=== PATIENT | female | born 1955 | race Caucasian/White ===

== ENCOUNTER 2016-08-07 10:05 | Observation (INO) | payer BC ==
[2016-08-01 20:58] LABS: HEMATOCRIT 37.1 % (36.0-48.0); HEMOGLOBIN 11.6 g/dL (12.0-16.0)
[2016-08-01 21:13] LABS: BUN (BLOOD UREA NITROGEN) 13 MG/DL (6-23); CALCIUM, SERUM 9.8 MG/DL (8.5-10.4); CHLORIDE, SERUM 99 MMOL/L (96-112); CO2 (CARBON DIOXIDE) 31 MMOL/L (24-34); CREATININE 0.97 MG/DL (0.55-1.02); GFR AFRICAN AMERICAN 73 ML/MIN (>=60); GFR NON AFRICAN AMERICAN 63 ML/MIN (>=60); GLUCOSE, SERUM 86 MG/DL (60-99); POTASSIUM, SERUM 3.5 MMOL/L (3.5-5.3); SODIUM, SERUM 138 MMOL/L (135-148)
--- NOTE | ~2016-08-07 | CN ---
Consultation Report [facility] [address] [place]. [address] NAME: KADEN MA : 51 STATUS : ADM Natalee PAT#: [id number] AGE: 60 ADM/REG DATE : 08/07/16 MR#: [id number] REPORT SERV DATE: 08/08/16 DICTATED BY: JASERADHAJINA JC DATE: 08/07/16 REPORT STATUS : Draft TRANSCRIBED BY: MODL DATE: 08/07/16 CONSULTATION DATE OF CONSULTATION: 08/07/2016 REASON FOR CONSULTATION: Consulted for hypertension and diabetes management. IDENTIFYING DATA: 1. PCP Yan Grijalva M.D. 2. Past surgeon Yan Rose M.D. 3. Orthopedist, Tramaine Price DO. 4. Category Development Analyst at [employer] M.D. 5. She sees the [facility] for followup on a thyroid nodule. HISTORY OF PRESENT ILLNESS: This is a pleasant 60-year-old, female, with presentation to Dr. Tramaine Price for intractable neck pain as well as paresthesias in her lower extremities. She is reporting that she has had progression of paresthesia and worsening of problems with her balance, falls, and dropping objects within the last 6 months. She was noted to have cervical disc disease and stenosis as well as progressive myelopathy most severe in C3-C6. She is presently status post C3-C6 anterior cervical diskectomy and fusion with interbody cage per Dr. Tramaine Price on 08/07/2016. The patient has a history of hypertension, TIA in the past as well as a history in 2014 of CHF and some problems with irregular rhythm noted as atrial fibrillation. She also is diabetic which she has diabetes type 2. Her last known A1c is 6.2 in April 2016 for which she states her PCP Yan Grijalva manages her care. The hospitalist group has been consulted to help manage the patient's blood sugars postoperatively as well as her blood pressure. Presently, her blood pressure is 130/80, with respiratory rate at 14, heart rate 72, and O2 saturation 99%. Her present blood sugar noted was 104. The patient's history was obtained through careful interview with the patient as well as review of [employer], [employer], and additional medical and [employer] ax consultant records. PAST MEDICAL HISTORY: 1. Anemia. 2. Fibromyalgia. 3. Osteoarthritis. 4. Raynaud disease. 5. Hypertension. 6. She wears glasses. 7. Diabetes type 2. 8. Hypercholesterolemia. 9. Hypothyroidism. 10.Atrial fibrillation. Consultation Report [facility] [address] [place]. [address] NAME: KADEN MA : 51 STATUS : ADM Natalee PAT#: [id number] AGE: 60 ADM/REG DATE : 08/07/16 MR#: [id number] REPORT SERV DATE: 08/08/16 DICTATED BY: RADHA LAGUNA DATE: 08/07/16 REPORT STATUS : Draft TRANSCRIBED BY: NADYA DATE: 08/07/16 11.Chronic fatigue syndrome. 12.Murmur. 13.Recurrent UTIs. 14.Peripheral neuropathy. 15.GERD. 16.Asthma. 17.Palpitations. 18.IBS. 19.Cholecystitis. 20.TIA that affected her right eye in the year 1999 and her vision. She states now her vision is normalized. 21.CHF. Last echo and stress test done in 2014. 22.Anxiety. HOME MEDICATION: 1. Docusate sodium 200 mg p.o. at bedtime. 2. Zetia 20 mg p.o. at bedtime. 3. Lasix 40 mg p.o. daily. 4. Metformin 1000 mg p.o. with breakfast and supper. 5. Toprol-XL 50 mg p.o. at bedtime. 6. Prilosec 20 mg p.o. every morning. 7. Aldactone 25 to 50 mg p.o. twice a day, 50 mg is taken in the a.m. and 25 mg is taken at bedtime. 8. Corona Thyroid 15 mg p.o. at bedtime. 9. Xanax 0.5 mg p.o. at bedtime. 10.Aspirin 81 mg p.o. at bedtime. 11.Lipitor 80 mg p.o. at bedtime. 12.Symbicort 160/4.5 mcg inhaler two puffs inhalation twice a day p.r.n. 13.Flexeril 10 mg p.o. at bedtime. ALLERGIES: THE PATIENT HAS NUMEROUS ALLERGIES. 1. CEFTIN. 2. CODEINE. 3. CYMBALTA. 4. PENICILLIN DRUGS. 5. TRAMADOL. 6. CHLORINE AND CLEANING FLUIDS. 7. TYLENOL. 8. IBUPROFEN. 9. LATEX. 10.MORPHINE. 11.HYDROCODONE. 12.OXYCODONE. 13.AVOCADO. 14.BANANA. Consultation Report [facility] [id number] [place]. [address] NAME: KADEN MA : 51 STATUS : ADM Natalee PAT#: [id number] AGE: 60 ADM/REG DATE : 08/07/16 MR#: [id number] REPORT SERV DATE: 08/08/16 DICTATED BY: RADHA LAGUNA DATE: 08/07/16 REPORT STATUS : Draft TRANSCRIBED BY: MODL DATE: 08/07/16 SOCIAL HISTORY: The patient is 25 years. Has 1 child. No alcohol, tobacco, or illicit drug use. She has a single level home. She states prior to surgery she has had to use a cane to ambulate. FAMILY HISTORY: 1. Positive for premature coronary artery disease. 2. Father was from an [place] in his 50s. 3. Brother had an [place] at age 3939 years old. 4. Mother and sister have a history of dysrhythmias and atrial fibrillation. SURGICAL HISTORY: 1. Carpal tunnel release 2007. 2. Right ankle surgery 2010. 3. Right foot surgery for Avalos's neuroma in 2003. 4. Laparoscopy in the . 5. Multiple surgeries for adhesions. 6. A lap with BSO with appendectomy in 1997. 7. Hysterectomy in 1994. 8. Lumbar spine back surgery October 2010. 9. Knee surgery multiple x2 on the right in 2005 and three on the left in 2002. 10.Laparoscopic cholecystectomy 04/30/2012. 11. in 1982. 12.Left thumb tendon reattachment in 1987. 13.Tonsillectomy in 1969. 14.Needle that was removed from her finger in 2013. REVIEW OF SYSTEMS: Review of systems negative other than what is included in HPI. Presently, the patient is alert and oriented x3. She is sleepy. She has a TAX MANAGER CPA with Dilaudid for pain control. She has no shortness of breath. No abdominal pain. She does have some nausea and vomiting which she states she has usually postoperatively after using anesthesia. No chest pain. No fever. Displays no confusion or agitation. PHYSICAL EXAMINATION: VITAL SIGNS: From today initially blood pressure 118/75, now 130/80, respiratory rate 14, heart rate 72, O2 saturation 99% on 2 L nasal cannula. GENERAL: This is a very pleasant, 60-year-old female, resting in bed. She has family at bedside. She is having nausea and vomiting presently. NEURO: Her head is atraumatic. She is normocephalic. She is alert and oriented x3. Cranial nerves are intact. Mood is pleasant and appropriate. NECK: Supple. Trachea is midline. No JVD noted. She does have followup for a thyroid nodule for which she is treated for hypothyroidism. She has a cervical collar in place presently. EENT: Sclerae are nonicteric. Pupils are equal and reactive to light. Nares are patent. Consultation Report [facility] [id number] [place]. [address] NAME: KADEN MA : 51 STATUS : ADM Natalee PAT#: [id number] AGE: 60 ADM/REG DATE : 08/07/16 MR#: [id number] REPORT SERV DATE: 08/08/16 DICTATED BY: RADHA LAGUNA DATE: 08/07/16 REPORT STATUS : Draft TRANSCRIBED BY: NADYA DATE: 08/07/16 Mucous membranes moist. Tongue midline without deviation. Soft palate rises with phonation. CHEST: No pain with palpation to chest. LUNGS: Clear to auscultation bilaterally. She has normal respiratory effort. No increased work of breathing. She is on O2 at 2 L. She does have a history of asthma. CARDIOVASCULAR: S1, S2. She is presently on defensive telemetry monitoring. She displays a sinus rhythm with a rate of 72. ABDOMEN: Soft, nontender. She has hypoactive bowel sounds. No palpable organomegaly. She is taking a few sips of clear liquids but she is having a lot of nausea. EXTREMITIES: Normal distal pulses. No calf tenderness. No edema. She has bilateral TEDs and SCDs in place for DVT prophylaxis. SKIN: Warm and dry. No unusual rashes or lesions. Normal color and turgor. PSYCH: The patient is cooperative, appropriate mood and affect. States she just feels really bad right now from the nausea. SURGICAL WOUND SITE: Dressing is clean, dry, and intact. She does have a RAND drain compressed with serosanguineous drainage to her cervical op site. She has a cervical collar intact. LABORATORY DATA: Sodium 138, potassium 3.5, chloride 99, BUN 13, creatinine 0.97, GFR 73. Glucose 86, calcium 9.8, hemoglobin 11.6, hematocrit 37.1, and that was from her labs obtained preoperatively on 08/01/2016. Blood sugars 86 and presently 104. On 08/01/2016, she had an ECG that showed normal sinus rhythm with a rate of 70 and a normal ECG. She previously had an echo on 02/23/2013 that showed no evidence of myocardial ischemia and was a low risk stress test. She also had testing again in 2014. In 2013, she had a normal left ventricular size and systolic function with EF around 65% with a trace of mitral regurg and mild tricuspid regurg. ASSESSMENT AND PLAN: 1. Diabetes type 2. The patient does not follow any regular diet at home for her diabetes nor does she monitor her diabetes. She has no meter. Her A1c in April 2016 was 6.2. We will place her on a 1500 calorie ADA, in the morning when she is nauseated. For now, she will be on clear liquids. We will have a extension educator discuss diet and monitoring and possibly obtain a meter for her. Fingerstick blood sugars for tonight will be q.6 hours and then in the morning when she is able to eat, we will resume a.c. and h.s. with a sliding scale insulin level 1 and hypoglycemic protocol. Presently, her metformin is held, and we will check a hemoglobin A1c in the morning. 2. Gastroesophageal reflex disease. Aware. The patient is continued on her Prilosec. 3. Hypertension. She has had a history of CHF a few years ago as well as TIA and atrial fibrillation. Aware. We will continue her metoprolol. Her aspirin is on hold postoperatively, and we will decrease her IV fluids to 75 enough to hydrate her but not to overload her. We will add p.r.n. hydralazine if her blood pressure is greater than 165 systolically. Presently, her Lasix and Aldactone are on hold until a.m. labs and patient is hydrated. 4. Hypothyroidism. Aware. We will continue her thyroid medication. We will check a TSH and a free-T4 in the morning. Consultation Report [facility] [address] [place]. [address] NAME: KADEN MA : 51 STATUS : ADM Natalee PAT#: [id number] AGE: 60 ADM/REG DATE : 08/07/16 MR#: [id number] REPORT SERV DATE: 08/08/16 DICTATED BY: RADHA LAGUNA DATE: 08/07/16 REPORT STATUS : Draft TRANSCRIBED BY: NADYA DATE: 08/07/16 5. Hypercholesterolemia. Aware. Her Zetia and Lipitor are continued. 6. Asthma. Aware. We will have O2 to keep her sats 92% or greater. She does utilize Symbicort at home but will be continued. We will add p.r.n. albuterol nebs as needed for shortness of breath and wheezing. She will need to be on continuous O2 sats while on TAX MANAGER CPA Dilaudid for pain control. 7. Anxiety. Aware. She will have her Xanax continued at bedtime for her anxiety. 8. Labs in the a.m.; CMP, magnesium, phosphorus, CBC, BNP, TSH, free T4, hemoglobin A1c, and portable chest x-ray. The hospitalist group would like to thank you for this consultation. Let us know if we can be of further assistance. AXEL Radha Laguna NP / [id number] CC: Tramaine Price, DO Yan Grijalva M.D.
--- NOTE | ~2016-08-07 | OP ---
Record Of Operation [facility] [address] [place]. [address] NAME: KADEN MA : 51 STATUS : ADM Natalee PAT#: [id number] AGE: 60 ADM/REG DATE : 08/07/16 MR#: [id number] REPORT SERV DATE: 08/07/16 DICTATED BY: TRAMAINE MCNAIR DATE: 08/07/16 REPORT STATUS : Draft TRANSCRIBED BY: MODL DATE: 08/07/16 DATE OF PROCEDURE: 08/07/2016 PREOPERATIVE DIAGNOSES: Cervical spondylotic myelopathy; C4-5, C5-6 disk disease with severe stenosis and spinal cord compression; and C3-C4 disk disease. POSTOPERATIVE DIAGNOSES: Cervical spondylotic myelopathy; C4-5, C5-6 disk disease with severe stenosis and spinal cord compression; and C3-C4 disk disease. PROCEDURE: Anterior cervical diskectomy and fusion, C4-5 and C5-6; placement of Medtronic PEEK interbody spacer, C4-5, C5-6; allograft bone matrix; neuromonitoring; placement of anterior cervical plate from Medtronic C4 through C6; operative microscope. SURGEON: Tramaine Mcnair DO ANESTHESIA: General. ESTIMATED BLOOD LOSS: 10 mL. COMPLICATIONS: None. INDICATIONS: The patient is a pleasant, 60-year-old female with intractable neck and arm pain with progressive signs of myelopathy, failed conservative treatment. After discussion of risks and benefits, elected to proceed with surgery. DESCRIPTION OF PROCEDURE: I identified the patient in the holding area. Consent was obtained. Went to the operating room. Underwent general anesthesia with endotracheal intubation. Prepped and draped in the usual sterile fashion. Operative safety pause was performed, then we proceeded. An oblique incision was made over the left side neck and taken down through the platysma and her dissection carried out down to the anterior aspect of the spine. Longus colli elevated. Self-retaining retractors were placed. Fieldton pin was placed and lateral fluoroscopic image used to verify operative level. Distraction was applied across the C5-C6 level. Operative microscope was brought in. A knife was used to perform an annulotomy. Free disk material removed with pituitary. Anterior osteophytes were removed with Kerrison. Posterior osteophytes and uncinate processes taken down with a broderick dexter. Foraminotomy was performed with a Kerrison. Endplates were finally prepared with curettes, rasp, and a cutting dexter. Trial spacers were implanted, then Medtronic PEEK interbody spacer with allograft bone matrix placed at C5-C6. This was repeated again at the C4-C5 level. There was severe spinal cord compression at each of these with the spinal cord being indented. Next, we turned our attention to C3-C4, but due to the patient's anatomy and the fact that the C3 level was up underneath the patient's mandible, it was not safe to reach that level from an anterior approach and this was the least severe on the level so I aborted that level. Fieldton pins were removed. Anterior cervical plate from Medtronic was placed at C4-C6. Screws were placed, final tightened. Locking mechanisms engaged. Irrigation performed. Hemostasis achieved. Final AP and lateral images obtained. Subplatysmal drain was placed. Layered closure performed. Sterile dressings applied. The Record Of Operation [address] [address] NAME: KADEN MA : 51 STATUS : ADM Natalee PAT#: [id number] AGE: 60 ADM/REG DATE : 08/07/16 MR#: [id number] REPORT SERV DATE: 08/07/16 DICTATED BY: TRAMAINE MCNAIR DATE: 08/07/16 REPORT STATUS : Draft TRANSCRIBED BY: NADYA DATE: 08/07/16 patient was awoken, extubated, and taken to the recovery room in stable condition. OPERATIVE FINDINGS: C4-6 disk disease and stenosis. No sustained neuromonitoring alerts. HANY/NADYA Tramaine Mcnair DO / [id number] CC: Tramaine Mcnair DO
--- NOTE | ~2016-08-07 | PREOPHP ---
PreOp History and Physical [facility] [address] [place]. [address] NAME: KADEN MA : 51 STATUS : REG [facility]#: [id number] AGE: 60 ADM/REG DATE : 08/07/16 MR#: [id number] REPORT SERV DATE: 08/07/16 DICTATED BY: TRAMAINE MCNAIR DATE: 08/07/16 REPORT STATUS : Draft TRANSCRIBED BY: NADYA DATE: 08/07/16 CHIEF COMPLAINT: Neck pain. HISTORY OF PRESENT ILLNESS: The patient is a pleasant 60-year-old with intractable neck pain as well as paresthesias into the extremities. She has also had reported worsening problems with balance, falls, and dropping objects consistent with myelopathy. After discussion of risks and benefits and informed consent and progressive neurologic decline, the patient elects to proceed with surgical intervention. REVIEW OF SYSTEMS: She denies chest pain, shortness of breath, and bowel or bladder changes. ALLERGIES: CEFTIN, CODEINE, CYMBALTA, IBUPROFEN, LATEX, MORPHINE, PENICILLIN, TRAMADOL, TYLENOL. HOME MEDICATIONS: Alprazolam, [place] Thyroid, aspirin, atorvastatin, B complex, benazepril, Flexeril, DHEA, ezetimibe, Lasix, Dilaudid, Synthroid, Lipitor, metformin, metoprolol, Singulair, promethazine, spironolactone, Symbicort, vitamin D3. FAMILY HISTORY: Noncontributory. PAST MEDICAL HISTORY: Anemia, fibromyalgia, osteoarthritis, Raynaud, hypertension, diabetes, hypercholesterolemia, hypothyroidism, recurrent bladder infection, peripheral neuropathy, gastric reflux, and asthma. PHYSICAL EXAMINATION: VITAL SIGNS: Height 5 feet 8 inches, weight 151, BMI 23. GENERAL: The patient in no acute distress. PSYCH: Alert and oriented x3. Normal mood and affect. Gait unsteady. VASCULAR: No extremity swelling. SPINE: Decreased range of motion. NEUROLOGIC: Strength in the upper extremities remains intact. No focal deficits. HEART: Regular rate and rhythm. LUNGS: Clear to auscultation. ABDOMEN: Soft, nontender, nondistended. Good bowel sounds. BREASTS AND RECTAL: Both deferred. IMAGING: I have reviewed the MRI scan of the cervical spine. The patient has diffuse disk disease and stenosis, most severe at C3-C6 with nerve and spinal cord compression. ASSESSMENT: Cervical disk disease and stenosis, progressive signs of myelopathy, failed conservative treatment. PLAN: The patient presents for surgical intervention. Consent was obtained. All questions were answered. The patient is ready to proceed with surgery. PreOp History and Physical [address] [address] NAME: KADEN MA : 51 STATUS : REG [facility] PAT#: [id number] AGE: 60 ADM/REG DATE : 08/07/16 MR#: [id number] REPORT SERV DATE: 08/07/16 DICTATED BY: TRAMAINE MCNAIR DATE: 08/07/16 REPORT STATUS : Draft TRANSCRIBED BY: MODL DATE: 08/07/16 HANY/NADYA Tramaine Mcnair DO / [id number] CC: DO Yan Gonzales M.D.
[~2016-08-07 10:05] MED LIST: ALLI60 MG PO; ARMOUR THYRO15 MG PO; ASAB PO; ASMANEX INH; ASTEPRO0.15 % NAS; CO Q-10100 MG PO; CYMBALTA60 PO; D.O.S.100 MG PO; DIL2TAB PO; FLAGIV500 IV; FLEX PO; GLUCOPHAGE1000 MG PO; IBU800 PO; KETO DHEA PO; L40 PO; LEVOTHYROXIN50 MCG PO; LIPITOR40 PO; LIPITOR80 MG PO; METHOC750B PO; NASOCORT AQ NAS; NUVIGIL150 MG PO; PR25 PO; PRILO PO; PROVHFA INH; SINGULAIR1 PO; SPIRO25 PO; SYMBICORT 160/41 INH INH; TOPXL50 PO; ULTRAM50 PO; VITAMIN D1000 UNI1 PO; VOLT50 PO; X5 PO; XANAX1 MG PO; ZANTAC150 MG PO; ZANTAC300 MG PO; ZETIA PO; ZYRTEC ALLGY10 MG PO; [UNRECOGNIZED DRUG - OTHER] PO
[2016-08-08 04:39] LABS: BASOPHILS 0 %; EOSINOPHILS 0 %; HEMATOCRIT 33.6 % (36.0-48.0); HEMOGLOBIN 10.7 g/dL (12.0-16.0); IMMATURE GRANULOCYTES 0.3 %; IMMATURE GRANULOCYTES ABSOLUTE 0.04 10/3/uL (0.0-0.11); LYMPHOCYTES 5.7 %; LYMPHOCYTES ABSOLUTE 0.69 10/3/uL (0.67-4.30); MEAN CORPUS HGB CONC 31.8 g/dL (32.0-36.0); MEAN CORPUSCULAR HEMOGLOB 25.8 pg (26.0-34.0); MEAN PLATELET VOLUME 8.7 fL (9.2-13.0); MONOCYTES 5.9 %; MONOCYTES ABSOLUTE 0.71 10/3/uL (0.21-1.20); NEUTROPHILS 88.1 %; NEUTROPHILS ABSOLUTE 10.59 10/3/uL (2.02-8.40); PLATELET COUNT 309 10/3/uL (150-400); RED CELL COUNT 4.15 10/6/uL (4.0-5.6)
[2016-08-08 04:40] LABS: MANUAL DIFF NO %; RBC DISTRIBUTION WIDTH 17.1 % (12.0-16.0)
[2016-08-08 04:57] LABS: ALBUMIN 3.2 G/DL (3.5-5.0); CHLORIDE, SERUM 103 MMOL/L (96-112); CO2 (CARBON DIOXIDE) 29 MMOL/L (24-34); CREATININE 0.76 MG/DL (0.55-1.02); GFR AFRICAN AMERICAN 97 ML/MIN (>=60); GFR NON AFRICAN AMERICAN 84 ML/MIN (>=60); GLOBULIN 3.1 G/DL (2.5-4.1); PHOSPHORUS, SERUM 3.5 MG/DL (2.5-4.5); SGOT(AST) 38 U/L (5-40); SGPT(ALT) 52 U/L (5-65); SODIUM, SERUM 139 MMOL/L (135-148); TOTAL BILIRUBIN 0.4 MG/DL (0-1.2); TOTAL PROTEIN 6.3 G/DL (6.0-8.5); ULTRASENSITIVE TSH 0.292 MCIU/ML (0.358-3.740)
[2016-08-08 04:59] LABS: ALKALINE PHOSPHATASE 85 U/L (45-117); BUN (BLOOD UREA NITROGEN) 9 MG/DL (6-23); CALCIUM, SERUM 8.7 MG/DL (8.5-10.4); GLUCOSE, SERUM 115 MG/DL (60-99); POTASSIUM, SERUM 4.5 MMOL/L (3.5-5.3)
[2016-08-08 06:04] LABS: B NATRIURETIC PEPTIDE (BNP) 147.4 PG/ML (< 100.0)
[2016-08-08 09:55] LABS: GLYCOHEMOGLOBIN (HbA1c) 5.8 % (4.7-6.1)
[2016-08-09 06:20] LABS: BASOPHILS 0.2 %; BASOPHILS ABSOLUTE 0.02 10/3/uL (0.0-0.16); EOSINOPHILS 0.5 %; EOSINOPHILS ABSOLUTE 0.05 10/3/uL (0.0-0.53); HEMOGLOBIN 10.7 g/dL (12.0-16.0); IMMATURE GRANULOCYTES 0.2 %; IMMATURE GRANULOCYTES ABSOLUTE 0.02 10/3/uL (0.0-0.11); LYMPHOCYTES 13.4 %; MEAN CORPUS HGB CONC 32.4 g/dL (32.0-36.0); MEAN CORPUSCULAR HEMOGLOB 25.8 pg (26.0-34.0); MEAN CORPUSCULAR VOLUME 79.7 fL (80-100); MEAN PLATELET VOLUME 8.5 fL (9.2-13.0); MONOCYTES 8.1 %; MONOCYTES ABSOLUTE 0.84 10/3/uL (0.21-1.20); NEUTROPHILS 77.6 %; PLATELET COUNT 293 10/3/uL (150-400); RBC DISTRIBUTION WIDTH 17.7 % (12.0-16.0); RED CELL COUNT 4.14 10/6/uL (4.0-5.6); WHITE BLOOD CELLS 10.4 10/3/uL (4.5-10.5)
[2016-08-09 06:21] LABS: MANUAL DIFF NO %
[2016-08-09 06:33] LABS: BUN (BLOOD UREA NITROGEN) 9 MG/DL (6-23); CALCIUM, SERUM 9.1 MG/DL (8.5-10.4); CHLORIDE, SERUM 106 MMOL/L (96-112); CO2 (CARBON DIOXIDE) 26 MMOL/L (24-34); CREATININE 0.71 MG/DL (0.55-1.02); GFR AFRICAN AMERICAN 106 ML/MIN (>=60); GFR NON AFRICAN AMERICAN 91 ML/MIN (>=60); GLUCOSE, SERUM 112 MG/DL (60-99); POTASSIUM, SERUM 4.1 MMOL/L (3.5-5.3); SODIUM, SERUM 138 MMOL/L (135-148)
[2016-08-09] MEDS ORDERED: PR25 PO (11:43)
[2016-08-09] MEDS ORDERED: DIL2TAB PO (11:44)
== END 2016-08-09 14:48 | disposition home or self-care (01) ==
LOC: SDC 10:05 → SDC/OF 15:00 → 3SO 17:11
PROVIDERS: Nurse Practitioner Family; Orthopaedic Surgery
PROC: 0RG20A0 Fusion of 2 or more Cervical Vertebral Joints with Interbody Fusion Device, Anterior Approach, Anterior Column, Open Approach (ICD-10-PCS; principal; 2016-08-07 12:15)
PROC: 0RG20K0 Fusion of 2 or more Cervical Vertebral Joints with Nonautologous Tissue Substitute, Anterior Approach, Anterior Column, Open Approach (ICD-10-PCS; 2016-08-07 12:15)
DX: M50.022 Cervical disc disorder at C5-C6 level with myelopathy (principal); M50.03 Cervical disc disorder with myelopathy, cervicothoracic region; M47.12 Other spondylosis with myelopathy, cervical region; M48.02 Spinal stenosis, cervical region; I11.0 Hypertensive heart disease with heart failure; I50.9 Heart failure, unspecified; I48.91 Unspecified atrial fibrillation; I73.00 Raynaud's syndrome without gangrene; E03.9 Hypothyroidism, unspecified; M79.7 Fibromyalgia; K21.9 Gastro-esophageal reflux disease without esophagitis; E78.00 Pure hypercholesterolemia, unspecified; E11.42 Type 2 diabetes mellitus with diabetic polyneuropathy; F41.9 Anxiety disorder, unspecified; J45.909 Unspecified asthma, uncomplicated; M19.90 Unspecified osteoarthritis, unspecified site; K58.9 Irritable bowel syndrome, unspecified; Z86.73 Personal history of transient ischemic attack (TIA), and cerebral infarction without residual deficits; Z91.040 Latex allergy status; Z88.5 Allergy status to narcotic agent; Z88.1 Allergy status to other antibiotic agents; Z88.0 Allergy status to penicillin; Z88.6 Allergy status to analgesic agent; Z91.018 Allergy to other foods; Z79.82 Long term (current) use of aspirin; Z79.84 Long term (current) use of oral hypoglycemic drugs; Z79.899 Other long term (current) drug therapy; Z87.891 Personal history of nicotine dependence; Z90.710 Acquired absence of both cervix and uterus; Z90.722 Acquired absence of ovaries, bilateral; Z90.89 Acquired absence of other organs; Z98.890 Other specified postprocedural states
CPT/HCPCS: 36415; 71010; 80048; 80053; 82962; 83036; 83735; 83880; 84100; 84439; 84443; 85014; 85018; 85025; 87641; 88304; 88311; 93005; 94640; 96374; 96375; 96376; 97116-GP; 97161-GP; A9270-GY; C1713; G0378; J0690; J1170; J2250; J2370; J2405; J2550; J2710; J3010; J3370